=== PATIENT | male | born 1965 ===

== ENCOUNTER 2018-05-21 12:46 | Emergency (ER) | payer OTHER ==
--- NOTE | 2018-05-21 13:39 | UC ---
Ear Complaint HPI - HPI Summary HPI Summary: PATIENT TAKES THE COTTON SWAB OFF OF THE END OF THE Q-TIP AND SCRATCHES THE INSIDE OF BOTH HIS EARS EVERY DAY. YESTERDAY DEVELOPED LEFT SIDED EAR PAIN. NO DRAINAGE OR HEARING LOSS. NO FEVER. HAS SLIGHT CONGESTION. - History of Current Complaint Chief Complaint: UCEar Stated Complaint: EAR PAIN Time Seen by Provider: 05/21/18 13:10 Hx Obtained From: Patient Onset/Duration: Sudden Onset, Lasting Days - 1 DAY, Still Present Severity Initially: Moderate Severity Currently: Moderate Pain Intensity: 8 Pain Scale Used: 0-10 Numeric Aggravating Factors: Nothing Alleviating Factors: Nothing Associated Signs/Symptoms: Positive: Trauma to Ear. Negative: Discharge, Hearing Loss - Allergies/Home Medications Allergies/Adverse Reactions: Allergies Allergy/AdvReac Type Severity Reaction Status Date / Time No Known Allergies Allergy Verified 05/21/18 13:12 Home Medications: Home Medications Amlodipine Besylate [Norvasc] 5 mg PO DAILY 05/21/18 [History Confirmed 05/21/18 ] Carisoprodol [Soma] 350 mg PO BID PRN 05/21/18 [History Confirmed 05/21/18] HYDROcodone/ACETAM 10-325 MG(N 1 tab PO DAILY PRN 05/21/18 [History Confirmed ] Losartan/Hydrochlorothiazide [Losartan-Hctz 50-12.5 mg Tab] 1 tab PO BID [History Confirmed 05/21/18] Pantoprazole Sodium 20 mg PO DAILY 05/21/18 [History Confirmed 05/21/18] PMH/Surg Hx/FS Hx/Imm Hx Cardiovascular History: Hypertension - Surgical History Surgical History: None - Family History Known Family History: Positive: Non-Contributory - Social History Alcohol Use: None Substance Use Type: None Smoking Status (MU): Former Smoker Review of Systems All Other Systems Reviewed And Are Negative: Yes Constitutional: Positive: Negative ENT: Positive: Ear Ache Respiratory: Positive: Negative Cardiovascular: Positive: Negative Gastrointestinal: Positive: Negative Physical Exam Triage Information Reviewed: Yes Appearance: Well-Appearing, No Pain Distress, Well-Nourished Vital Signs: Initial Vital Signs Temp 98.5 F 05/21/18 13:07 Pulse 69 05/21/18 13:07 Resp 18 05/21/18 13:07 BP 147/90 05/21/18 13:07 Pulse Ox 97 02/19/19 13:07 Vital Signs Reviewed: Yes Eyes: Positive: Conjunctiva Clear ENT: Positive: Hearing grossly normal, Pharynx normal, TMs normal - TMS NORMAL. RIGHT EAC WITH CERUMEN. LEFT EAC ERYTHEMATOUS WITH DEBRIS Neck: Positive: Supple, Nontender, No Lymphadenopathy Respiratory: Positive: No respiratory distress, No accessory muscle use Cardiovascular: Positive: Pulses Normal Abdomen Description: Positive: Soft Musculoskeletal: Positive: No Edema Neurological: Positive: Alert Psychological: Positive: Age Appropriate Behavior Skin: Negative: Rashes Ear Complaint Course/Dx - Course Course Of Treatment: RIGHT EAR CANAL IRRIGATED BY RN. TM SEEN TO BE NORMAL. LEFT EAR CANAL IS ERYTHEMATOUS WITH SOME DEBRIS. WILL COVER WITH TOPICAL ANTIBIOTIC EARDROPS. STRONGLY STRESSED TO PATIENT IMPORTANCE OF NOT DIGGING AT HIS EAR CANALS. FOLLOW-UP IF NEEDED. - Differential Dx/Diagnosis Provider Diagnosis: Otitis externa, left Discharge - Sign-Out/Discharge Documenting (check all that apply): Patient Departure All imaging exams completed and their final reports reviewed: No Studies - Discharge Plan Condition: Stable Disposition: HOME Prescriptions: Ciproflox/Dexameth OTIC.SUSP* [Ciprodex Otic*] 4 drop LEFT EAR BID #1 bottle Patient Education Materials: Otitis Externa (ED) Referrals: No Primary Care Phys,NOPCP [Primary Care Provider] - Additional Instructions: USE THE DROPS TWICE DAILY FOR 7 DAYS. NO MORE QTIPS! FOLLOW-UP ENT IF NOT IMPROVING. [facility] [place] [address] [facility] [phone] CALL THE NUMBER BELOW FOR ASSISTANCE IN ESTABLISHING WITH A PCP An additional resource available to assist in finding the appropriate physician for your health care needs is the [facility] ([facility]heryl [facility]av[facility]). You may contact them by calling [phone]. - Billing Disposition and Condition Condition: STABLE Disposition: Home
== END 2018-05-21 14:07 | disposition home or self-care (01) ==
LOC: UCEAST 12:46
DX: H60.92 Unspecified otitis externa, left ear (principal); I10 Essential (primary) hypertension; Z87.891 Personal history of nicotine dependence
CPT/HCPCS: 99203; G0463

== ENCOUNTER 2018-10-09 07:41 | Emergency (ER) | payer OTHER ==
--- NOTE | 2018-10-09 08:09 | ED ---
Laceration/Wound HPI - HPI Summary HPI Summary: The patient is a 53 y/o M presenting to [facility] with a chief complaint of sudden onset laceration to the right forearm near the elbow at 2100 last night. 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 This caused him to sustain a laceration to the arm that began bleeding immediately. He states that he cleaned the wound and bandaged it. Currently, the pain is rated 6/10 in severity. There are no aggravating or alleviating factors. He denies fevers or erythema. Hx of HTN. Former smoker, no EtOH, no substance use. - History of Current Complaint Stated Complaint: R ARM LAC PER PT Time Seen by Provider: 10/09/18 07:59 Hx Obtained From: Patient Mechanism of Injury: Sharp/Blunt Trauma - cut arm on a broken dish Onset/Duration: Sudden Onset, Lasting Hours - at 2100 last night, Still Present Aggravating: Nothing Alleviating: Nothing Onset Severity: Moderate Current Severity: Moderate Pain Intensity: 6 Pain Scale Used: 0-10 Numeric - Allergy/Home Medications Allergies/Adverse Reactions: Allergies Allergy/AdvReac Type Severity Reaction Status Date / Time amoxicillin Allergy Rash Verified 10/09/18 08:06 PMH/Surg Hx/FS Hx/Imm Hx Endocrine/Hematology History: Denies: Hx Diabetes Cardiovascular History: Reports: Hx Hypertension - on meds Denies: Hx Hypercholesterolemia, Hx Pacemaker/ICD History: Denies: Hx Renal Disease Musculoskeletal History: Reports: Hx Back Problems Sensory History: Reports: Hx Contacts or Glasses Denies: Hx Hearing Aid Opthamlomology History: Reports: Hx Contacts or Glasses Psychiatric History: Denies: Hx Panic Disorder - Surgical History Surgical History: None Surgery Procedure, Year, and Place: none Infectious Disease History: No Infectious Disease History: Denies: Traveled Outside the [place] in Last 30 Days - Family History Known Family History: Negative: Diabetes - Social History Alcohol Use: None Hx Substance Use: No Substance Use Type: Reports: None Hx Tobacco Use: Yes Smoking Status (MU): Former Smoker Review of Systems Negative: Fever Positive: Other - POSITIVE: laceration on the right forearm near the elbow; NEGATIVE: erythema All Other Systems Reviewed And Are Negative: Yes Physical Exam - Summary Physical Exam Summary: VITAL SIGNS: Reviewed. GENERAL: Patient is a well-developed and nourished male who is lying comfortable in the stretcher. Patient is not in any acute respiratory distress. HEAD AND FACE: No signs of trauma. No ecchymosis, hematomas or skull depressions. No sinus tenderness. EYES: PERRLA, EOMI x 2, No injected conjunctiva, no nystagmus. EARS: Hearing grossly intact. Ear canals and tympanic membranes are within normal limits. MOUTH: Oropharynx within normal limits. NECK: Supple, trachea is midline, no adenopathy, no JVD, no carotid bruit, no c- spine tenderness, neck with full ROM. CHEST: Symmetric, no tenderness at palpation. LUNGS: Clear to auscultation bilaterally. No wheezing or crackles. CVS: Regular rate and rhythm, S1 and S2 present, no murmurs or gallops appreciated. ABDOMEN: Soft, non-tender. No signs of distention. No rebound, no guarding, and no masses palpated. Bowel sounds are normal. EXTREMITIES: FROM in all major joints, no edema, no cyanosis or clubbing. NEURO: Alert and oriented x 3. No acute neurological deficits. Speech is normal and follows commands. SKIN: 1.5 cm laceration on the right forearm. Dry and warm. Triage Information Reviewed: Yes Vital Signs On Initial Exam: Initial Vitals Temp Pulse Resp BP Pulse Ox 98.6 F 73 16 159/63 99 10/09/18 07:45 10/09/18 07:45 10/09/18 07:45 10/09/18 07:45 10/09/18 07:45 Vital Signs Reviewed: Yes Procedures - Laceration/Wound Repair 1 Location: upper extremity - right forearm Description: Linear Anesthesia: Lido Length, Depth and Shape: 1.5 cm Laceration/Wound Explored: clean Closure: Single Layer Suture Type: Nylon Number of Sutures: 5 - 4-0 Sterile Dressing Applied?: Yes Diagnostics - Vital Signs Vital Signs Temp Pulse Resp BP Pulse Ox 10/09/18 07:45 98.6 F 73 16 159/63 99 - Laboratory Lab Statement: Any lab studies that have been ordered have been reviewed, and results considered in the medical decision making process. Re-Evaluation - Re-Evaluation First Eval Re-Evaluation Time: 08:25 Comment: Since the patient is UTD on vaccinations, he is able to be discharged following suture procedure performed without complications. Laceration Repair Course/Dx - Course Assessment/Plan: The patient is a 53 y/o M presenting to [facility] with a chief complaint of sudden onset laceration to the right forearm near the elbow at 2100 last night. 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 This caused him to sustain a laceration to the arm that began bleeding immediately. He states that he cleaned the wound and bandaged it. Currently, the pain is rated 6/10 in severity. There are no aggravating or alleviating factors. He denies fevers or rashes. Hx of HTN. Former smoker, no EtOH, no substance use. Laceration was repaired. There were no complications. The patient reports that he is up-to-date on vaccinations. Therefore, the patient will be discharged home with follow-up with primary care physician in the next 7 -10 days for suture removals. He was recommended to return to the emergency room if he develops any swelling, redness or pain. He is hemodynamically stable alert and oriented 3. - Clinical Impression Provider Diagnoses: Laceration of right upper extremity Discharge - Sign-Out/Discharge Documenting (check all that apply): Patient Departure - Patient will be discharged home. Patient Received Moderate/Deep Sedation with Procedure: No - Discharge Plan Condition: Stable Disposition: HOME Patient Education Materials: Care For Your Stitches (DC), Laceration (DC) Referrals: Marlena Rios MD [Primary Care Provider] - 10/19/18 Additional Instructions: Follow up with your primary care provider in 10 days for suture removal. RETURN TO THE ED FOR ANY NEW OR WORSENING SYMPTOMS. - Billing Disposition and Condition Condition: STABLE Disposition: Home - Attestation Statements Document Initiated by Obdulio: Yes Documenting Scribe: Margarita Munson Provider For Whom Obdulio is Documenting (Include Credential): Dr. Luis Aguilar MD Scribe Attestation: Margarita Grijalva scribed for Dr. Luis Aguilar MD on 10/09/18 at 1138. Scribe Documentation Reviewed: Yes Provider Attestation: The documentation as recorded by the Margarita jolley accurately reflects the service I personally performed and the decisions made by me, Dr. Luis Aguilar MD Status of Scribe Document: Ready
[2018-10-09] MEDS ORDERED: Bacitracin OINTMENT* 0.5% 0.5 oz TUBE TOPICAL ONE (08:34)
[2018-10-09] MEDS ORDERED: Bacitracin OINTMENT* 0.5% 0.5 oz TUBE ONE (08:36)
[2018-10-09 08:47] VITALS: BP 145/72
== END 2018-10-09 08:45 | disposition home or self-care (01) ==
LOC: ED 07:41
DX: S51.811A Laceration without foreign body of right forearm, initial encounter (principal); W25.XXXA Contact with sharp glass, initial encounter; Y92.511 Restaurant or cafe as the place of occurrence of the external cause; Y99.0 Civilian activity done for income or pay; I10 Essential (primary) hypertension; Z87.891 Personal history of nicotine dependence; Z88.1 Allergy status to other antibiotic agents; Z79.899 Other long term (current) drug therapy
CPT/HCPCS: 12001; 99282; A9270-GY